=== PATIENT | female | born 1965 | race Caucasian/White ===

== ENCOUNTER → 2016-11-26 | Outpatient (CLI) | payer BC ==
[2016-11-26 08:23] LABS: HEMATOCRIT 39.1 % (36.0-47.0); HEMOGLOBIN 13.4 g/dL (12.0-15.5); HGB HCT DIFFERENCE 1.1; MEAN CORPUSCULAR HEMOGLOBIN 30.1 pg (27.0-33.4); MEAN CORPUSCULAR HGB CONC 34.2 g/dL (32.0-36.0); MEAN CORPUSCULAR VOLUME 88 fl (80-97); RED BLOOD COUNT 4.44 10^6/uL (3.72-5.28); RED CELL DISTRIBUTION WIDTH 12.3 % (11.5-14.0); WHITE BLOOD COUNT 8.9 10^3/uL (4.0-10.5)
[2016-11-26 08:47] LABS: ALANINE AMINOTRANSFERASE 31 U/L (9-52); ALBUMIN 4.2 g/dL (3.5-5.0); ALKALINE PHOSPHATASE 88 U/L (38-126); ANION GAP 12 (5-19); ASPARTATE AMINO TRANSFERASE 19 U/L (14-36); BILIRUBIN,TOTAL 0.7 mg/dL (0.2-1.3); BLOOD UREA NITROGEN 20 mg/dL (7-20); CARBON DIOXIDE 28 mmol/L (22-30); CHLORIDE 101 mmol/L (98-107); CREATININE RESULT 0.63 mg/dL (0.52-1.25); GLUCOSE 98 mg/dL (75-110); IRON 93.3 ug/dL (37-170); POTASSIUM 3.9 mmol/L (3.6-5.0); SODIUM 140.5 mmol/L (137-145); TOTAL PROTEIN 7.2 g/dL (6.3-8.2)
[2016-11-27 07:20] LABS: VITAMIN D 25-HYDROXY 32.9 ng/mL (30.0-100.0)
== END ==
LOC: OD 07:10
PROVIDERS: ATTEND Physician Assistant Medical
DX: K91.2 Postsurgical malabsorption, not elsewhere classified (principal); E55.9 Vitamin D deficiency, unspecified; E53.1 Pyridoxine deficiency
CPT/HCPCS: 36415; 80053; 82306; 82607; 82746; 83540; 83735; 83970; 84207; 85027

== ENCOUNTER → 2017-12-18 | Outpatient (CLI) | payer BC ==
[2017-12-18 07:55] LABS: HEMOGLOBIN 14.2 g/dL (12.0-15.5); MEAN CORPUSCULAR HEMOGLOBIN 29.8 pg (27.0-33.4); MEAN CORPUSCULAR HGB CONC 33.8 g/dL (32.0-36.0); MEAN CORPUSCULAR VOLUME 88 fl (80-97); PLATELET COUNT 349 10^3/uL (150-450); RED BLOOD COUNT 4.76 10^6/uL (3.72-5.28); RED CELL DISTRIBUTION WIDTH 12.3 % (11.5-14.0); WHITE BLOOD COUNT 7.1 10^3/uL (4.0-10.5)
[2017-12-18 08:18] LABS: ALANINE AMINOTRANSFERASE 36 U/L (9-52); ALBUMIN 4.1 g/dL (3.5-5.0); ALKALINE PHOSPHATASE 79 U/L (38-126); ANION GAP 8 (5-19); ASPARTATE AMINO TRANSFERASE 20 U/L (14-36); BILIRUBIN,DIRECT 0.1 mg/dL (0.0-0.4); BILIRUBIN,TOTAL 0.5 mg/dL (0.2-1.3); BLOOD UREA NITROGEN 22 mg/dL (7-20); CALCIUM 9.7 mg/dL (8.4-10.2); CARBON DIOXIDE 31 mmol/L (22-30); CHLORIDE 102 mmol/L (98-107); GLUCOSE 105 mg/dL (75-110); IRON 99.9 ug/dL (37-170); POTASSIUM 3.7 mmol/L (3.6-5.0); SODIUM 140.9 mmol/L (137-145); TOTAL PROTEIN 6.6 g/dL (6.3-8.2)
[2017-12-18 09:35] LABS: FOLATE > 20.00 ng/mL (>2.76)
[2017-12-22 07:12] LABS: VITAMIN B1 (THIAMINE) 202.2 nmol/L (66.5-200.0)
== END ==
LOC: OD 07:21
PROVIDERS: ATTEND Physician Assistant Surgical
DX: E46 Unspecified protein-calorie malnutrition (principal); K91.2 Postsurgical malabsorption, not elsewhere classified; R63.4 Abnormal weight loss
CPT/HCPCS: 36415; 80053; 82306; 82607; 82728; 82746; 83540; 83735; 83970; 84425; 84443; 85027

== ENCOUNTER → 2018-06-23 | Outpatient (CLI) | payer BC ==
[2018-06-23 07:37] LABS: HEMATOCRIT 40.3 % (36.0-47.0); MEAN CORPUSCULAR HEMOGLOBIN 30.4 pg (27.0-33.4); MEAN CORPUSCULAR HGB CONC 34.9 g/dL (32.0-36.0); MEAN CORPUSCULAR VOLUME 87 fl (80-97); PLATELET COUNT 388 10^3/uL (150-450); RED BLOOD COUNT 4.63 10^6/uL (3.72-5.28); RED CELL DISTRIBUTION WIDTH 12.6 % (11.5-14.0)
[2018-06-23 08:14] LABS: CALCIUM 9.5 mg/dL (8.4-10.2)
[2018-06-23 08:50] LABS: FERRITIN 20.5 ng/mL (11.1-264.0)
== END ==
LOC: OD 07:07
PROVIDERS: ATTEND Physician Assistant Surgical
DX: E83.50 Unspecified disorder of calcium metabolism (principal); E46 Unspecified protein-calorie malnutrition; E55.9 Vitamin D deficiency, unspecified; K91.2 Postsurgical malabsorption, not elsewhere classified
CPT/HCPCS: 36415; 82306; 82310; 82728; 83970; 85027

== ENCOUNTER → 2018-11-20 | Outpatient (CLI) | payer BC ==
[2018-11-20 08:13] LABS: HEMATOCRIT 40.1 % (36.0-47.0); MEAN CORPUSCULAR HEMOGLOBIN 30.5 pg (27.0-33.4); MEAN CORPUSCULAR VOLUME 87 fl (80-97); PLATELET COUNT 365 10^3/uL (150-450); RED CELL DISTRIBUTION WIDTH 12.9 % (11.5-14.0); WHITE BLOOD COUNT 6.5 10^3/uL (4.0-10.5)
[2018-11-20 08:47] LABS: ALANINE AMINOTRANSFERASE 21 U/L (9-52); ALBUMIN 4.3 g/dL (3.5-5.0); ALKALINE PHOSPHATASE 101 U/L (38-126); ANION GAP 9 (5-19); ASPARTATE AMINO TRANSFERASE 18 U/L (14-36); BILIRUBIN,DIRECT 0.1 mg/dL (0.0-0.4); BILIRUBIN,TOTAL 0.6 mg/dL (0.2-1.3); BLOOD UREA NITROGEN 15 mg/dL (7-20); CALCIUM 9.5 mg/dL (8.4-10.2); CARBON DIOXIDE 30 mmol/L (22-30); CHLORIDE 100 mmol/L (98-107); GLUCOSE 114 mg/dL (75-110); IRON 78.4 ug/dL (37-170); SODIUM 138.6 mmol/L (137-145); TOTAL PROTEIN 7.2 g/dL (6.3-8.2)
[2018-11-20 08:54] LABS: POTASSIUM 3.8 mmol/L (3.6-5.0)
== END ==
LOC: OD 07:38
PROVIDERS: ATTEND Specialist
DX: E46 Unspecified protein-calorie malnutrition (principal); K91.2 Postsurgical malabsorption, not elsewhere classified; E55.9 Vitamin D deficiency, unspecified
CPT/HCPCS: 36415; 80053; 82306; 82607; 82728; 82746; 83540; 83735; 83970; 84425; 85027

== ENCOUNTER → 2019-03-03 | Outpatient (CLI) | payer BC ==
[2019-03-03 08:11] LABS: HEMATOCRIT 42.8 % (36.0-47.0); HEMOGLOBIN 14.7 g/dL (12.0-15.5); MEAN CORPUSCULAR HEMOGLOBIN 29.5 pg (27.0-33.4); MEAN CORPUSCULAR HGB CONC 34.2 g/dL (32.0-36.0); MEAN CORPUSCULAR VOLUME 86 fl (80-97); PLATELET COUNT 375 10^3/uL (150-450); RED BLOOD COUNT 4.96 10^6/uL (3.72-5.28); RED CELL DISTRIBUTION WIDTH 13.1 % (11.5-14.0); WHITE BLOOD COUNT 6.3 10^3/uL (4.0-10.5)
[2019-03-03 08:38] LABS: ALANINE AMINOTRANSFERASE 24 U/L (9-52); ALBUMIN 4.4 g/dL (3.5-5.0); ALKALINE PHOSPHATASE 111 U/L (38-126); ANION GAP 8 (5-19); ASPARTATE AMINO TRANSFERASE 20 U/L (14-36); BILIRUBIN,DIRECT 0.2 mg/dL (0.0-0.4); BILIRUBIN,TOTAL 0.7 mg/dL (0.2-1.3); BLOOD UREA NITROGEN 17 mg/dL (7-20); CALCIUM 9.9 mg/dL (8.4-10.2); CARBON DIOXIDE 29 mmol/L (22-30); CHLORIDE 103 mmol/L (98-107); CHOLESTEROL 200.34 mg/dL (0-200); GLUCOSE 110 mg/dL (75-110); IRON 105.1 ug/dL (37-170); POTASSIUM 4.6 mmol/L (3.6-5.0); SODIUM 139.5 mmol/L (137-145); TOTAL PROTEIN 7.4 g/dL (6.3-8.2); TRIGLYCERIDES 59 mg/dL (<150)
[2019-03-03 08:49] LABS: DIRECT LDL 114 mg/dL (<100)
== END ==
LOC: OD 07:36
PROVIDERS: ATTEND Physician Assistant
DX: E46 Unspecified protein-calorie malnutrition (principal); K91.2 Postsurgical malabsorption, not elsewhere classified
CPT/HCPCS: 36415; 80053; 80061; 82306; 82607; 82728; 82746; 83036; 83540; 83735; 83970; 84425; 84443; 85027

== ENCOUNTER → 2019-06-01 | Outpatient (CLI) | payer BC | LOC: OD 07:11 | PROVIDERS: ATTEND Specialist | DX: E46 Unspecified protein-calorie malnutrition (principal); K91.2 Postsurgical malabsorption, not elsewhere classified; R79.9 Abnormal finding of blood chemistry, unspecified; E55.9 Vitamin D deficiency, unspecified | CPT/HCPCS: 36415; 82330; 83970 ==

== ENCOUNTER → 2019-06-24 | Outpatient (CLI) | payer BC | LOC: OD 11:29 | PROVIDERS: ATTEND Family Medicine | DX: N95.1 Menopausal and female climacteric states (principal) | CPT/HCPCS: 36415; 83001 ==

== ENCOUNTER 2019-08-19 09:36 | Emergency (ER) | payer BC ==
[2019-08-19] MEDS ORDERED: ASPIRIN 81 MG TABLET, CHEWABLE PO ONE (10:00)
--- NOTE | 2019-08-19 10:05 | ER Document Report ---
ED Medical Screen (RME) - General Chief Complaint: Chest Pain Stated Complaint: LEFT CHEST PAIN Time Seen by Provider: 08/19/19 10:00 Primary Care Provider: KRUPA VIEYRA MD [Primary Care Provider] - Follow up as needed Mode of Arrival: Ambulatory Information source: Patient TRAVEL OUTSIDE OF THE [place] IN LAST 30 DAYS: No - HPI Notes: 08/19/19 10:01 54-year-old female with a history of MS and asthma presents the ED for complaints of left-sided chest pain that has become progressively worse over the last week. Patient was diagnosed with a strep throat, was started on a Z-Rivera, patient has been doing nebulizers without relief, was reevaluated by her PCP on Friday at [facility], was given a steroid shot, which did not help. Patient states that she feels "pressure" and "someone stepping on her chest". did not take a baby ASA. Patient's father from a fatal NH at age 47. Non- smoker. Denies any fevers or chills. Denies any numbness tingling in bilateral upper extremities, weakness, lightheadedness, nausea vomiting or diarrhea. Denies any previous cardiac history. ROS: Other than noted above, the 12 point review of systems was reviewed with the patient and were negative, all pertinent findings are included in the HPI. PHYSICAL EXAMINATION: Vital signs reviewed. GENERAL: Well-appearing, well-nourished and in no acute distress. HEAD: Atraumatic, normocephalic. NECK: Normal range of motion CV: Heart regular rate and rhythm, reproducible chest pain on left LUNGS: No respiratory distress ABD: generalized abd pain Musculoskeletal: Normal range of motion NEUROLOGICAL: Normal speech PSYCH: Normal mood, normal affect. MDM: Patient seen and examined for rapid initial assessment. Vital signs reviewed. A comprehensive ED assessment and evaluation of the patient, analysis of test results and completion of the medical decision making process will be conducted by additional ED providers. *Note is created using voice recognition software and may contain spelling, syntax or grammatical errors. - Related Data Allergies/Adverse Reactions: acetaminophen [From Vicodin] Allergy (Verified 08/19/19 09:48) amoxicillin trihydrate [From Augmentin] Allergy (Verified 08/19/19 09:48) clarithromycin [From Biaxin] Allergy (Verified 08/19/19 09:48) doxycycline Allergy (Verified 08/19/19 09:48) hydrocodone bitartrate [From Vicodin] Allergy (Verified 08/19/19 09:48) latex [Latex] Allergy (Verified 08/19/19 09:48) morphine [Morphine] Allergy (Verified 08/19/19 09:48) Penicillins Allergy (Verified 08/19/19 09:48) povidone-iodine [From Betadine] Allergy (Verified 08/19/19 09:48) Soap [From Betadine] Allergy (Verified 08/19/19 09:48) Past Medical History - Social History Chew tobacco use (# tins/day): No Frequency of alcohol use: Occasional Drug Abuse: None - Past Medical History Cardiac Medical History: Reports: Hx Hypertension Pulmonary Medical History: Reports: Hx Asthma Musculoskeltal Medical History: Reports Hx Fibromyalgia Past Surgical History: Reports: Hx Gastric Bypass Surgery Physical Exam - Vital signs Vitals: Temp Pulse Resp BP Pulse Ox 97.2 F 101 H 20 136/85 H 95 08/19/19 09:49 08/19/19 09:49 08/19/19 09:49 08/19/19 09:49 08/19/19 09:49 Course - Vital Signs Vital signs: Temp Pulse Resp BP Pulse Ox 97.2 F 101 H 20 136/85 H 95 08/19/19 09:49 08/19/19 09:49 08/19/19 09:49 08/19/19 09:49 08/19/19 09:49 Doctor's Discharge - Discharge Referrals: KRUPA VIEYRA MD [Primary Care Provider] - Follow up as needed
[2019-08-19 10:27] LABS: ABSOLUTE EOSINOPHILS # (AUTO) 0.2 10^3/uL (0.0-0.6); ABSOLUTE LYMPHOCYTES (AUTO) 2.6 10^3/uL (0.5-4.7); ABSOLUTE MONOCYTES (AUTO) 0.6 10^3/uL (0.1-1.4); ABSOLUTE NEUT (AUTO) 5.2 10^3/uL (1.7-8.2); BASOPHILS % (AUTO) 0.6 % (0-2); EOSINOPHILS % (AUTO) 2.4 % (0-6); HEMATOCRIT 41.9 % (36.0-47.0); HEMOGLOBIN 14.1 g/dL (12.0-15.5); LYMPHOCYTES % (AUTO) 30.3 % (13-45); MEAN CORPUSCULAR HEMOGLOBIN 29.6 pg (27.0-33.4); MEAN CORPUSCULAR HGB CONC 33.7 g/dL (32.0-36.0); MEAN CORPUSCULAR VOLUME 88 fl (80-97); PLATELET COUNT 397 10^3/uL (150-450); RED BLOOD COUNT 4.78 10^6/uL (3.72-5.28); RED CELL DISTRIBUTION WIDTH 13.5 % (11.5-14.0); SEGMENTED NEUTROPHILS % (AUTO) 59.7 % (42-78); TOTAL CELLS COUNTED % (AUTO) 100 %; WHITE BLOOD COUNT 8.7 10^3/uL (4.0-10.5)
[2019-08-19 10:46] LABS: ALBUMIN 4.3 g/dL (3.5-5.0); ALKALINE PHOSPHATASE 108 U/L (38-126); ANION GAP 10 (5-19); ASPARTATE AMINO TRANSFERASE 17 U/L (14-36); BILIRUBIN,DIRECT 0.2 mg/dL (0.0-0.4); BILIRUBIN,TOTAL 0.8 mg/dL (0.2-1.3); BLOOD UREA NITROGEN 18 mg/dL (7-20); CALCIUM 9.3 mg/dL (8.4-10.2); CARBON DIOXIDE 27 mmol/L (22-30); CHLORIDE 105 mmol/L (98-107); POTASSIUM 4.3 mmol/L (3.6-5.0); TOTAL PROTEIN 7.8 g/dL (6.3-8.2)
[2019-08-19 10:48] LABS: GLUCOSE 48 mg/dL (75-110)
[2019-08-19 10:51] LABS: APPEARANCE,URINE SLIGHTLY-CLOUDY; BILIRUBIN,URINE NEGATIVE (NEGATIVE); COLOR,URINE YELLOW; GLUCOSE, URINE NEGATIVE (NEGATIVE); KETONES,URINE NEGATIVE (NEGATIVE); LEUKOCYTE ESTERASE,URINE NEGATIVE (NEGATIVE); NITRITE,URINE NEGATIVE (NEGATIVE); PROTEIN,URINE NEGATIVE (NEGATIVE); URINE SPECIFIC GRAVITY 1.024; UROBILINOGEN,URINE NEGATIVE mg/dL (<2.0)
--- NOTE | 2019-08-19 10:51 | RADIOLOGY REPORT (SQ) ---
EXAM DESCRIPTION: CHEST SINGLE VIEW COMPLETED DATE/TIME: 08/19/2019 10:27 am REASON FOR STUDY: CP, cough COMPARISON: Chest films 03/23/2009, 01/12/2016 EXAM PARAMETERS: NUMBER OF VIEWS: One view. TECHNIQUE: Single frontal radiographic view of the chest acquired. RADIATION DOSE: NA LIMITATIONS: None. FINDINGS: LUNGS AND PLEURA: No opacities, masses or pneumothorax. No pleural effusion. MEDIASTINUM AND HILAR STRUCTURES: No masses. Contour normal. HEART AND VASCULAR STRUCTURES: Heart normal in size. Normal vasculature. BONES: Multiple old left lateral rib fractures HARDWARE: None in the chest. OTHER: No other significant finding. IMPRESSION: NO ACUTE RADIOGRAPHIC FINDING IN THE CHEST. TECHNICAL DOCUMENTATION: JOB ID: [id number] [employer]- All Rights Reserved Reading location - IP/workstation name: [email or web address]
[2019-08-19] MEDS ORDERED: NORMAL SALINE 1000 ML 1,000 ML IV ONE (10:56)
--- NOTE | 2019-08-19 10:56 | ER Document Report ---
Entered by BROOK ROBB SCRIBE 08/19/19 1038 Acting as scribe for:CHARLIE CHUNG MD ED General - General Chief Complaint: Chest Pain Stated Complaint: LEFT CHEST PAIN Time Seen by Provider: 08/19/19 10:00 Primary Care Provider: KRUPA VIEYRA MD [Primary Care Provider] - Follow up as needed Mode of Arrival: Ambulatory Information source: Patient Notes: This 54 year old female patient presents to the emergency department today with complaints of reproducible left sided chest pain with a cough and shortness of breath for the last week. Patient was seen at a local urgent care three days ago (08/16/2019) for these symptoms and was started on a z-maulik for an upper respiratory infection. Patient states she has tried at home inhalers and duoneb nebulizers treatments with no real change. Patient reports that the nebulizer is new for her, stating that she got it after her urgent care visit on 08/16/19. Patient states the nebulizer "seems to make things worse", stating that she gets "a pounding heart and head" when doing a treatment. Patient mentions that she feels like there is a "weight on her left chest", which has been present for a week. Patient describes a chest pain that is reproducible with cough and movements. Patient states she was told that she was started on the z-maulik due to "decreased airflow in her left lung". Pertinent PMHx/PSHx: asthma - additional PMHx/PSHx not pertinent to this visit as recorded. PCP: Doctor Krupa Vieyra TRAVEL OUTSIDE OF THE [place] IN LAST 30 DAYS: No - Related Data Allergies/Adverse Reactions: acetaminophen [From Vicodin] Allergy (Verified 08/19/19 09:48) amoxicillin trihydrate [From Augmentin] Allergy (Verified 08/19/19 09:48) clarithromycin [From Biaxin] Allergy (Verified 08/19/19 09:48) doxycycline Allergy (Verified 08/19/19 09:48) hydrocodone bitartrate [From Vicodin] Allergy (Verified 08/19/19 09:48) latex [Latex] Allergy (Verified 08/19/19 09:48) morphine [Morphine] Allergy (Verified 08/19/19 09:48) Penicillins Allergy (Verified 08/19/19 09:48) povidone-iodine [From Betadine] Allergy (Verified 08/19/19 09:48) Soap [From Betadine] Allergy (Verified 08/19/19 09:48) Past Medical History - General Information source: Patient - Social History Smoking Status: Never Smoker Cigarette use (# per day): No Chew tobacco use (# tins/day): No Frequency of alcohol use: Occasional Drug Abuse: None Occupation: hospice nurse Family History: Reviewed & Not Pertinent Patient has suicidal ideation: No Patient has homicidal ideation: No - Past Medical History Cardiac Medical History: Reports: Hx Hypertension Pulmonary Medical History: Reports: Hx Asthma Musculoskeletal Medical History: Reports Hx Fibromyalgia Past Surgical History: Reports: Hx Gastric Bypass Surgery Review of Systems - Review of Systems Constitutional: No symptoms reported EENT: No symptoms reported Cardiovascular: See HPI, Chest pain - reproducible Respiratory: See HPI, Cough, Short of breath Gastrointestinal: No symptoms reported Genitourinary: No symptoms reported Female Genitourinary: No symptoms reported Musculoskeletal: No symptoms reported Skin: No symptoms reported Hematologic/Lymphatic: No symptoms reported Neurological/Psychological: No symptoms reported -: Yes All other systems reviewed and negative Physical Exam - Vital signs Vitals: Temp Pulse Resp BP Pulse Ox 97.2 F 101 H 20 136/85 H 95 08/19/19 09:49 08/19/19 09:49 08/19/19 09:49 08/19/19 09:49 08/19/19 09:49 - Notes Notes: Physical Exam: General: Alert, appears well. HEENT: Normocephalic. Atraumatic. PERRL. Extraocular movements intact. Or opharynx clear. Neck: Supple. Non-tender. Respiratory: No respiratory distress. Clear and equal breath sounds bilaterally. Left anterior lateral chest wall tenderness with palpation, reproducible chest pain. Cardiovascular: Regular rate and rhythm. Abdominal: Obese. Non-tender. No distension. Normal Bowel Sounds. Back: No gross abnormalities. Extremities: Moves all four extremities. Upper extremities: Normal inspection. Normal ROM. Lower extremities: Normal inspection. No edema. Normal ROM. Neurological: Normal cognition. AAOx4. Normal speech. Psychological: Normal affect. Normal Mood. Skin: Warm. Dry. Normal color. Course - Re-evaluation Re-evalutation: 08/19/19 13:18 Patient reported that when she tried to use her DuoNeb nebulizer at home, it made her heart race. She was given Atrovent here initially, then an albuterol nebulizer treatment. She did not get tachycardic following the nebulizer treatment using albuterol. 08/19/19 14:11 The patient's pulse ox is 98% on room air. She does seem somewhat anxious and talks about the discomfort in her left chest. It is quite tender to palpate. I suspect the discomfort she is having is causing her the sensation that air is not moving into the lung. When I discussed management options, she states her surgeon that did the bypass surgery did not want her taking prednisone because he did not want a steroid sitting in her pouch. Told her we would prescribe her Predalone syrup which she can take and then immediately drink a large glass of water to haley it through, she can then drink water again and just a few minutes to ensure that no steroid sits in her pouch. - Vital Signs Vital signs: Temp Pulse Resp BP Pulse Ox 97.2 F 101 H 14 129/78 H 98 08/19/19 09:49 08/19/19 09:49 08/19/19 13:03 08/19/19 13:03 08/19/19 13:03 - Laboratory Result Diagrams: 08/19/19 10:02 08/19/19 10:02 Laboratory results interpreted by me: 08/19/19 08/19/19 10:02 12:16 Glucose 48 L POC Glucose 218 H - Diagnostic Test Radiology reviewed: Image reviewed, Reports reviewed - Chest x-ray does not show acute changes. - EKG Interpretation by Tn EKG shows normal: Sinus rhythm, Friedens, Intervals, QRS Complexes. abnormal: ST-T Waves - Borderline anterior T abnormalities Rate: Normal - 93 Rhythm: NSR Discharge - Discharge Clinical Impression: Viral upper respiratory tract infection with cough, Chest wall pain Asthma exacerbation Qualifiers: Asthma severity: mild Asthma persistence: unspecified Qualified Code(s): J45.901 - Unspecified asthma with (acute) exacerbation Condition: Stable Disposition: HOME, SELF-CARE Additional Instructions: Bronchitis with Bronchospasm (Wheezing) You have bronchitis with bronchospasm (wheezing). Sometimes people develop wheezing with a chest cold. This occurs either because of an underlying tendency toward asthma or because the virus itself irritates the bronchial tubes. This irritation causes cough, shortness of breath, and wheezing. Emergency treatment of bronchospasm may include adrenaline shots or bronchodilator aerosol. You may feel lightheaded and have a rapid pulse for an hour or two. Rest and get plenty of fluids. At home, we'll treat you with a bronchodilator inhaler. Corticosteroids may be required for some patients. Until you recover, avoid chemical fumes, dusts, pollens, and exercising in very cold or dry air. If you smoke, stop now! Most cases of bronchitis get better without antibiotics. We prescribe antibiotics when we believe bacteria are damaging your airways, or if there's high risk the bronchitis will worsen into pneumonia. Increase your fluid intake. A cool mist humidifier may make your lungs more comfortable. An expectorant (cough medicine that loosens phlegm) can help. Repeated episodes of bronchitis and bronchospasm may result in lung damage -- for example, chronic bronchitis, recurrent pneumonias, or emphysema. If you develop a fever, increased wheezing, chest pain, or severe shortness of breath, you should contact the doctor immediately. Chest Wall Pain Your chest pain has been diagnosed as coming from the chest wall. This is often caused by straining the muscles or joints in the chest during physical activity, direct trauma, coughing, or vigorous vomiting. Persons with arthritis are especially prone to this type of pain, due to inflammation of the cartilage joints near the breast bone. Occasionally, no cause can be found. Rest from strenuous physical activity. This kind of chest pain is usually made worse by movement of the chest. Depending on the symptoms, we may prescribe medicine for pain, muscle relaxation, and antiinflammatory effects. If the pain is new, and seems to be due to muscle strain, cold packs can help. Otherwise, apply gentle warmth to the painful area for 15 minutes every hour or two. You should contact the doctor immediately if things change. Further evaluati on is needed if you develop a fever or cough, if the nature of the pain changes, or if you become short of breath. Take the medications as prescribed. Drink a large glass of water immediately following taking the medication, and again a few minutes after taking the medication. Use your DuoNeb nebulizer treatments every 4 hours for wheezing as needed. Follow-up with your primary care provider in the next few days if not improving. RETURN TO THE EMERGENCY ROOM IF ANY NEW OR WORSENING SYMPTOMS. Prescriptions: Prednisolone Sod Phosphate [Prelone Soln 15 Mg/5 Ml Oral Syring] 5 ml PO QID #100 ml Benzonatate [Tessalon Perles 100 mg Capsule] 100 mg PO ASDIR PRN #30 capsule PRN Reason: Forms: Return to Work Referrals: KRUPA VIEYRA MD [Primary Care Provider] - Follow up as needed Scribe Attestation: 08/19/19 13:53 I personally performed the services described in the documentation, reviewed and edited the documentation which was dictated to the scribe in my presence, and it accurately records my words and actions. I personally performed the services described in the documentation, reviewed and edited the documentation which was dictated to the scribe in my presence, and it accurately records my words and actions.
[2019-08-19] MEDS ORDERED: IPRATROPIUM BROMIDE 0.02% NEB 0.5 MG/2.5 ML AMPUL NEB ONE (10:57)
[2019-08-19] MEDS ORDERED: DEXTROSE 5%-LACTATED RINGERS 1,000 ML IV ONE (11:00)
[2019-08-19] MEDS: MAGNESIUM SULFATE/D5W 1 GM/100 ML RTUPB IV SCH ×2 (11:20→12:01)
[2019-08-19] MEDS ORDERED: ALBUTEROL SULFATE 0.083% NEB 2.5 MG/3 ML AMPUL NEB ONE ×2 (11:44→13:18)
[2019-08-19 14:44] VITALS: BP 128/75
== END 2019-08-19 14:39 | disposition home or self-care (01) ==
LOC: ER 09:36
DX: J45.901 Unspecified asthma with (acute) exacerbation (principal); J06.9 Acute upper respiratory infection, unspecified; B97.89 Other viral agents as the cause of diseases classified elsewhere; R07.89 Other chest pain; R05 Cough; R06.02 Shortness of breath; I10 Essential (primary) hypertension; Z88.8 Allergy status to other drugs, medicaments and biological substances; Z88.1 Allergy status to other antibiotic agents; Z88.6 Allergy status to analgesic agent; Z88.5 Allergy status to narcotic agent; Z91.040 Latex allergy status; Z88.0 Allergy status to penicillin; Z88.3 Allergy status to other anti-infective agents; Z98.84 Bariatric surgery status
CPT/HCPCS: 94640 ×2; 99285; 96365; 36415; 82962; 85025; 80053; 81001; 84484; 71045; J3475; J7121; J3490

== ENCOUNTER → 2019-10-29 | Outpatient (CLI) | payer BC ==
[2019-10-29 08:26] LABS: HEMATOCRIT 41.7 % (36.0-47.0); HEMOGLOBIN 14.5 g/dL (12.0-15.5); MEAN CORPUSCULAR HEMOGLOBIN 29.5 pg (27.0-33.4); MEAN CORPUSCULAR HGB CONC 34.8 g/dL (32.0-36.0); MEAN CORPUSCULAR VOLUME 85 fl (80-97); PLATELET COUNT 387 10^3/uL (150-450); RED BLOOD COUNT 4.91 10^6/uL (3.72-5.28); WHITE BLOOD COUNT 6.5 10^3/uL (4.0-10.5)
[2019-10-29 09:00] LABS: ALBUMIN 4.3 g/dL (3.5-5.0); ALKALINE PHOSPHATASE 105 U/L (38-126); ANION GAP 13 (5-19); ASPARTATE AMINO TRANSFERASE 23 U/L (14-36); BILIRUBIN,DIRECT 0.3 mg/dL (0.0-0.4); BILIRUBIN,TOTAL 0.6 mg/dL (0.2-1.3); BLOOD UREA NITROGEN 19 mg/dL (7-20); CALCIUM 9.4 mg/dL (8.4-10.2); CARBON DIOXIDE 26 mmol/L (22-30); CHLORIDE 99 mmol/L (98-107); GLUCOSE 164 mg/dL (75-110); POTASSIUM 3.8 mmol/L (3.6-5.0); TOTAL PROTEIN 7.5 g/dL (6.3-8.2)
== END ==
LOC: OD 07:45
PROVIDERS: ATTEND Physician Assistant
DX: K91.2 Postsurgical malabsorption, not elsewhere classified (principal); R63.5 Abnormal weight gain; E55.9 Vitamin D deficiency, unspecified; E53.1 Pyridoxine deficiency
CPT/HCPCS: 36415; 80053; 82306; 82607; 82746; 83735; 83970; 84425; 85027